=== PATIENT | female | born 1995 | race Caucasian/White ===

== ENCOUNTER 2018-11-29 19:10 | Emergency (ER) | payer SELFPAY ==
[~2018-11-29] VITALS: Ht 160 cm; Wt 56.6 kg
[2018-11-29 19:12] VITALS: BP 130/97
== END 2018-11-29 21:23 | disposition home or self-care (01) ==
LOC: ED 21:17
DX: F15.959 Other stimulant use, unspecified with stimulant-induced psychotic disorder, unspecified (principal); F22 Delusional disorders; J02.8 Acute pharyngitis due to other specified organisms; Z72.9 Problem related to lifestyle, unspecified; Z91.14 Patient's other noncompliance with medication regimen; Z63.8 Other specified problems related to primary support group; Z75.9 Unspecified problem related to medical facilities and other health care
CPT/HCPCS: 36415; 84443; 99283